=== PATIENT | male | born 1950 | race Caucasian/White ===

== ENCOUNTER 2020-10-30 13:00 | Day surgery (SDC) | payer MEDICARE, BC ==
[2020-10-30] MEDS ORDERED: IODIXANOL 150 ML IV ONE ×2 (13:05→14:15)
[2020-10-30] MEDS ORDERED: FENTANYL PF 100MCG/2ML AMPUL ONE (13:06)
[2020-10-30] MEDS ORDERED: IV NS 0.9% 1,000 ML ONE (13:06)
[2020-10-30] MEDS ORDERED: MIDAZOLAM HCL 2 MG/2ML VIAL ONE ×2 (13:06→14:27)
[2020-10-30] MEDS ORDERED: LIDOCAINE HCL/PF 1% 30 ML SDV ONE (13:15)
[2020-10-30] MEDS ORDERED: IODIXANOL 320MG/ML 100 ML IV ONE (14:53)
[2020-10-30] MEDS ORDERED: IV NS 0.9% 1,000 ML IV ONE (16:00)
[2020-10-30 16:03] VITALS: BP 144/90
--- NOTE | 2020-10-30 16:05 | NUR ---
TRASH MAN RECEIVED PT FROM NURSES DIRECTOR BY BED. PT AWAKE AND ALERT, SUPINE WITH INTACT DRESSING OF LEFT FEMORAL AREA. LEFT DISTAL PULSES PALPABLE. LEFT FOOT WARM AND DRY. PT UNDERSTANDS THAT HE NEEDS TO KEEP HIMSELF AT BEDREST FOR 6 HRS AND TO KEEP HIS LEFT LEG FROM BENDING.
[2020-10-30] MEDS ORDERED: IV NS 0.9% 1,000 ML IV PRN (17:00)
[2020-10-30 17:01] VITALS: BP 166/73
--- NOTE | 2020-10-30 18:00 | NUR ---
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 LEFT PEDAL PULSES PALPABLE, PRESENCE VERIFIED BY DOPPLER. DENIES CHEST PAIN. ABLE TO DRINK WITHOUT DIFFICULTY. PT TO RETURN TO [facility] BY AMBULANCE AT AROUND 2100 ARRANGED BY CASE MANAGEMENT.
[2020-10-30 18:01] VITALS: BP 163/97
[2020-10-30 19:01] VITALS: BP 146/80
--- NOTE | 2020-10-30 19:41 | NUR ---
DEMAND MANAGER REPORT CALLED TO AXEL AT [facility] TELE AT . 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 CARE ENDORSED TO LINDA ROGER
[2020-10-30 20:00] VITALS: BP 162/87
--- NOTE | 2020-10-30 20:00 | NUR ---
Received patient awake alert and oriented x4.VS stable.SB 59.S/P Left Heart Catheterization.Left groin dressing clean dry and intact.No bleeding or hematoma noted.Left dorsalis/post tibial pulses audible by Doppler.Patient aware of bedrest with left leg straight.Denies chest pain or sob.IVF NS infusing at 100 ml/hr x 10 hrs.Patient awaiting transfer back to [facility].Safety precaution maintained.Call light at bedside.Continue monitoring.
[2020-10-30 21:00] VITALS: BP 147/63
--- NOTE | 2020-10-30 21:16 | NUR ---
Patient left to [facility] via [facility] in stable condition with his belongings only cell phone.Accompanied by [facility] Raquel and Gary Hernández and patients .Discharge papers given to Raquel.
== END 2020-10-30 19:00 | disposition admitted as inpatient to this hospital (09) ==
LOC: SURGERY 13:00 → UNDODISIN 21:16
PROVIDERS: ATTEND Internal Medicine
DX: R07.9 Chest pain, unspecified (principal); I21.4 Non-ST elevation (NSTEMI) myocardial infarction; I25.10 Atherosclerotic heart disease of native coronary artery without angina pectoris; I25.810 Atherosclerosis of coronary artery bypass graft(s) without angina pectoris; Z79.899 Other long term (current) drug therapy
CPT/HCPCS: 75625; 93459; 99152; 99153; C1887 ×2; C1894; J1644 ×3; J2250 ×2; J3010; J3490; J7030; Q9967 ×2; G0378; G0500

== ENCOUNTER 2021-06-16 11:25 | Emergency (ER) | payer MEDICARE, BC ==
[~2021-06-16] VITALS: Ht 177.8 cm; Wt 90.7 kg
[2021-06-16 11:31] VITALS: BP 160/90
--- NOTE | 2021-06-16 11:31 | NUR ---
"R foot pain- Have a lot of issues w/Right leg last night tripped"
[2021-06-16] MEDS ORDERED: ACETAMINOPHEN 325 MG TABLET ONE (13:42)
[2021-06-16] MEDS ORDERED: ACETAMINOPHEN 325 MG TABLET PO ONE (14:00)
--- NOTE | 2021-06-16 14:00 | NUR ---
WAITING FOR CENTRAL SUPPLIES TO BRING WALKER
--- NOTE | 2021-06-16 14:30 | NUR ---
Patient discharged to home in stable condition. Written and verbal after care instructions given. Patient verbalizes understanding of instruction.
== END 2021-06-16 15:26 | disposition home or self-care (01) ==
LOC: ER 11:27
DX: S93.491A Sprain of other ligament of right ankle, initial encounter (principal); S93.691A Other sprain of right foot, initial encounter; I10 Essential (primary) hypertension; W18.49XA Other slipping, tripping and stumbling without falling, initial encounter; Y93.89 Activity, other specified; Y92.89 Other specified places as the place of occurrence of the external cause; Y99.8 Other external cause status
CPT/HCPCS: 73610-TC; 73630-TC